=== PATIENT | male | born 1940 | race Hispanic/Latino ===

== ENCOUNTER 2018-08-18 14:36 | Inpatient (IN) | payer MEDICARE ==
--- NOTE | 2018-08-18 15:02 | Cat Scan Report ---
PROCEDURE: CT HEAD/BRAIN WO CON TECHNIQUE: A noncontrast CT of the head was performed. HISTORY: neuro deficits <6hrs or sx present upon awakening COMPARISON: None FINDINGS: There is moderate cerebral atrophy. 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 There is no acute intracranial hemorrhage. There is no brain edema, mass effect or midline shift. Ventricular size is appropriate for brain volume. There is no abnormal extra-axial fluid collections. There is no skull fracture seen. There is some dependent fluid in the left maxillary sinus. Remaining visualized sinuses are clear. IMPRESSION: There is no acute intracranial abnormality seen. Some dependent fluid left maxillary sinus. Acute sinusitis not excluded. This document is electronically signed by Sulema Johnson MD., August 18 2018 03:00:47 PM ET
[2018-08-18 15:13] LABS: Basophils % (Auto) 0.6 % (0.0-1.8); Eosinophils # (Auto) 0.2 K/mm3 (0.0-0.4); Eosinophils % (Auto) 2.9 % (0.0-4.3); Hematocrit 45.4 % (35.5-45.6); Hemoglobin 15.3 gm/dl (11.8-15.2); Lymphocytes # (Auto) 1.3 K/mm3 (1.2-5.4); Lymphocytes % (Auto) 15.8 % (13.4-35.0); Mean Corpuscular HGB Conc 34 % (32-34); Mean Corpuscular Volume 88 fl (84-94); Monocytes # (Auto) 0.5 K/mm3 (0.0-0.8); Platelet Count 271 K/mm3 (140-440); Red Blood Count 5.16 M/mm3 (3.65-5.03); Red Cell Distribution Width 14.3 % (13.2-15.2)
[2018-08-18 15:26] LABS: INR 0.97 (0.87-1.13); Partial Thromboplastin Time 25.4 Sec. (24.2-36.6)
[2018-08-18 15:27] LABS: BUN/Creatinine Ratio 23; Blood Urea Nitrogen 18 mg/dL (9-20); Hemolysis Index 10
--- NOTE | 2018-08-18 15:28 | Emergency Department Report ---
ED Neuro Deficit HPI - General Chief Complaint: Neuro Symptoms/Deficit Stated Complaint: POSS STROKE/SENT BY DOCTOR Time Seen by Provider: 08/18/18 15:03 Source: patient, family Mode of arrival: Stretcher Limitations: No Limitations - History of Present Illness Initial Comments: [facility] Date of service: 08/18/18 Impression: acute onset right hemiparesis without aphasia or other cortical signs - concerning for L subcortical infarct, but LVO with good collaterals is also a concern. Recommend CTA head/neck - - - Not a tpa candidate due to: LKN >4.5 hours Presentation is not suggestive of Large Vessel Occlusive Disease. Thrombectomy would not be recommended. Differential Diagnosis: 1. Cardioembolic stroke 2. Small vessel disease/lacune 3. Thromboembolic, [id number] mechanism 4. Hypercoagulable state-related infarct 5. Transient ischemic attack 6. Thrombotic mechanism, large artery disease Comments: Door time: 1436 [employer] contacted: [phone] [employer] at bedside: 1513 NIHSS assessment time: 1521 Recommendations: ASA CTA head/neck DVT proph - lovenox permissive htn PT/OT/speech bedside swallow eval Inpatient neurology consultation Inpatient stroke evaluation as per Neurology/ Internal Medicine Discussed with ED MD Please call with questions CC right sided weakness. History of Present Illness Patient is a77 yo man with acute onset weakness starting at approx 1000 today. He describes right>left weakness. Weakness involves only the arm and leg, but not the face. He denies trouble speaking/swallowing. No LOC/convulsion. His notes that his speech is also slurred. He takes no blood thinners. Diagnostic: CT head unremarkable. Exam: RESULT SUMMARY: 5 points NIH Stroke Scale INPUTS: 1A: Level of consciousness > 0 = Alert; keenly responsive 1B: Ask month and age > 0 = Both questions right 1C: 'Blink eyes' & 'squeeze hands' > 0 = Performs both tasks 2: Horizontal extraocular movements > 0 = Normal 3: Visual powell > 0 = No visual loss 4: Facial palsy > 1 = Minor paralysis (flat nasolabial fold, smile asymmetry) 5A: Left arm motor drift > 0 = No drift for 10 seconds 5B: Right arm motor drift > 3 = No effort against gravity 6A: Left leg motor drift > 0 = No drift for 5 seconds 6B: Right leg motor drift > 0 = No drift for 5 seconds 7: Limb Ataxia > 0 = No ataxia 8: Sensation > 1 = Mild-moderate loss: less sharp/more dull 9: Language/aphasia > 0 = Normal; no aphasia 10: Dysarthria > 0 = Normal 11: Extinction/inattention > 0 = No abnormality Medical Decision Making: - Extensive number of diagnosis or management options are considered above. - Extensive amount of complex data reviewed. - High risk of complication and/or morbidity or mortality are associated with differential diagnostic considerations above. - There may be Uncertain outcome and increased probability of prolonged functional impairment or high probability of severe prolonged functional impairment associated with some of these differential diagnosis. Medical Data Reviewed: 1.Data reviewed include clinical labs, radiology, Medical Tests; 2.Tests results discussed w/performing or interpreting physician; 3.Obtaining/reviewing old medical records; 4.Obtaining case history from another source; 5.Independent review of image, tracing or specimen. Patient was informed the Neurology Consult would happen via telehealth (remote video) and consented to receiving care in this manner. - Related Data Allergies/Adverse Reactions: Allergies Allergy/AdvReac Type Severity Reaction Status Date / Time Iodine and Iodide Containing Allergy Unknown Verified 08/18/18 15:17 Produc ED Review of Systems ROS: Stated complaint: POSS STROKE/SENT BY DOCTOR Other details as noted in HPI ED Past Medical Hx - Past Medical History Previous Medical History?: Yes Hx Hypertension: Yes Hx Diabetes: Yes Additional medical history: Hypothyroidism. hyperlipidemia. myasthenia gravis - Social History Smoking Status: Never Smoker Substance Use Type: None ED Neuro Physical Exam - General Limitations: No Limitations Suspected Stroke: Yes - NIHSS Assessment Interval: Baseline 1a. Level of Consciousness: alert/keenly responsive 1b. LOC Questions: answers both correctly 1c. LOC Commands: performs tasks correctly 2. Best Gaze: normal 3. Visual: no visual loss 4. Facial Palsy: minor paralysis 5b. Motor Arm Right: no gravity effort 5a. Motor Arm Left: no drift 6a. Motor Leg Left: no drift 6b. Motor Leg Right: no drift 7. Limb Ataxia: absent 8. Sensory: mild/moderate sensory loss 9. Best Language: no aphasia 10. Dysarthria: normal 11. Extinction/Inattention: no abnormality Total Score: 5 Stroke Severity: Moderate Stroke ED Course Vital Signs 08/18/18 15:10 Temperature 97.8 F Pulse Rate 84 Respiratory 16 Rate Blood Pressure 150/74 O2 Sat by Pulse 96 Oximetry - Lab Data Result diagrams: 08/18/18 15:04 Lab Results 08/18/18 08/18/18 Range/Units 15:04 15:04 WBC 8.3 (4.5-11.0) K/mm3 RBC 5.16 H (3.65-5.03) M/mm3 Hgb 15.3 H (11.8-15.2) gm/dl Hct 45.4 (35.5-45.6) % MCV 88 (84-94) fl MCH 30 (28-32) pg MCHC 34 (32-34) % RDW 14.3 (13.2-15.2) % Plt Count 271 (140-440) K/mm3 Lymph % (Auto) 15.8 (13.4-35.0) % [place] % (Auto) 6.0 (0.0-7.3) % Eos % (Auto) 2.9 (0.0-4.3) % Baso % (Auto) 0.6 (0.0-1.8) % Lymph # 1.3 (1.2-5.4) K/mm3 [place] # 0.5 (0.0-0.8) K/mm3 Eos # 0.2 (0.0-0.4) K/mm3 Baso # 0.0 (0.0-0.1) K/mm3 Seg Neutrophils % 74.7 H (40.0-70.0) % Seg Neutrophils # 6.2 (1.8-7.7) K/mm3 PT 13.5 (12.2-14.9) Sec. INR 0.97 (0.87-1.13) Critical care attestation.: If time is entered above; I have spent that time in minutes in the direct care o f this critically ill patient, excluding procedure time. ED Disposition Clinical Impression: Stroke Disposition: DC-09 OP ADMIT IP TO THIS HOSP Is pt being admited?: Yes Condition: Stable Referrals: PRIMARY CARE, [Primary Care Provider] - 3-5 Days
--- NOTE | 2018-08-18 16:22 | Emergency Department Report ---
ED General Adult HPI - General Chief complaint: Neuro Symptoms/Deficit Stated complaint: POSS STROKE/SENT BY DOCTOR Time Seen by Provider: 08/18/18 15:03 Source: patient, family Mode of arrival: Stretcher Limitations: No Limitations - History of Present Illness Initial comments: Patient presents to the emergency department with a chief complaint of right sided weakness and slurred speech that started at approximately 10 AM this morning. The patient went to his primary care physician's office today and upon arriving at their office he was told to come to the emergency department for evaluation. -: Sudden Severity scale (0 -10): 0 Consistency: constant Improves with: none Worsens with: none Associated Symptoms: denies other symptoms Treatments Prior to Arrival: none - Related Data Home Medications Medication Instructions Recorded Confirmed Last Taken ALBUTEROL Inhaler(NF) [VENTOLIN 2 puff IH QID PRN 08/18/18 08/18/18 Unknown Inhaler(NF)] Aspirin [Aspirin BABY CHEW TAB] 81 mg PO QDAY 08/18/18 08/18/18 08/18/18 Cetirizine HCl [ZyrTEC] 10 mg PO DAILY PRN 08/18/18 08/18/18 Unknown Gabapentin [Neurontin] 600 mg PO Q8H 08/18/18 08/18/18 08/18/18 Ibuprofen [Advil 100 MG tab] 200 mg PO Q6H PRN 08/18/18 08/18/18 Unknown Levothyroxine [Synthroid] 100 mcg PO QAM 08/18/18 08/18/18 08/18/18 Lisinopril [Zestril TAB] 2.5 mg PO QDAY 08/18/18 08/18/18 08/18/18 Montelukast [Singulair] 10 mg PO QPM PRN 08/18/18 08/18/18 Unknown Mycophenolate [Cellcept] 500 mg PO DAILY 08/18/18 08/18/18 08/18/18 Pyridostigmine [Mestinon] 60 mg PO Q6HR 08/18/18 08/18/18 08/18/18 Ranitidine HCl [Zantac] 150 mg PO BID 08/18/18 08/18/18 08/18/18 Rosuvastatin (Nf) [Crestor] 5 mg PO QHS 08/18/18 08/18/18 08/17/18 amLODIPine [Norvasc] 10 mg PO DAILY 08/18/18 08/18/18 08/18/18 metFORMIN [Glucophage] 500 mg PO QDAY 08/18/18 08/18/18 08/18/18 Allergies Allergy/AdvReac Type Severity Reaction Status Date / Time Iodine and Iodide Containing Allergy Anaphylaxis Verified 08/18/18 16:19 Produc latex Allergy Unknown Verified 08/18/18 15:29 soy Allergy Unknown Verified 08/18/18 16:19 ED Review of Systems ROS: Stated complaint: POSS STROKE/SENT BY DOCTOR Other details as noted in HPI Constitutional: denies: chills, fever Eyes: denies: eye pain, eye discharge, vision change ENT: denies: ear pain, throat pain Respiratory: denies: cough, shortness of breath, wheezing Cardiovascular: denies: chest pain, palpitations Endocrine: no symptoms reported Gastrointestinal: denies: abdominal pain, nausea, diarrhea Genitourinary: denies: urgency, dysuria Musculoskeletal: denies: back pain, joint swelling, arthralgia Skin: denies: rash, lesions Neurological: weakness. denies: headache, paresthesias Psychiatric: denies: anxiety, depression Hematological/Lymphatic: denies: easy bleeding, easy bruising ED Past Medical Hx - Past Medical History Previous Medical History?: Yes Hx Hypertension: Yes Hx Diabetes: Yes Additional medical history: Hypothyroidism. hyperlipidemia. myasthenia gravis - Social History Smoking Status: Never Smoker Substance Use Type: None - Medications Home Medications: Home Medications Medication Instructions Recorded Confirmed Last Taken Type ALBUTEROL Inhaler(NF) [VENTOLIN 2 puff IH QID PRN 08/18/18 08/18/18 Unknown History Inhaler(NF)] Aspirin [Aspirin BABY CHEW TAB] 81 mg PO QDAY 08/18/18 08/18/18 08/18/18 History Cetirizine HCl [ZyrTEC] 10 mg PO DAILY PRN 08/18/18 08/18/18 Unknown History Gabapentin [Neurontin] 600 mg PO Q8H 08/18/18 08/18/18 08/18/18 History Ibuprofen [Advil 100 MG tab] 200 mg PO Q6H PRN 08/18/18 08/18/18 Unknown History Levothyroxine [Synthroid] 100 mcg PO QAM 0408/18/18 08/18/18 History Lisinopril [Zestril TAB] 2.5 mg PO QDAY 08/18/18 08/18/18 08/18/18 History Montelukast [Singulair] 10 mg PO QPM PRN 08/18/18 08/18/18 Unknown History Mycophenolate [Cellcept] 500 mg PO DAILY 08/18/18 08/18/18 08/18/18 History Pyridostigmine [Mestinon] 60 mg PO Q6HR 08/18/18 08/18/18 08/18/18 History Ranitidine HCl [Zantac] 150 mg PO BID 08/18/18 08/18/18 08/18/18 History Rosuvastatin (Nf) [Crestor] 5 mg PO QHS 08/18/18 08/18/18 08/17/18 History amLODIPine [Norvasc] 10 mg PO DAILY 08/18/18 08/18/18 08/18/18 History metFORMIN [Glucophage] 500 mg PO QDAY 08/18/18 08/18/18 08/18/18 History ED Physical Exam - General Limitations: No Limitations General appearance: alert, in no apparent distress - Head Head exam: Present: atraumatic, normocephalic - Eye Eye exam: Present: normal appearance, PERRL, EOMI - ENT ENT exam: Present: mucous membranes moist - Neck Neck exam: Present: normal inspection - Respiratory Respiratory exam: Present: normal lung sounds bilaterally. Absent: respiratory distress - Cardiovascular Cardiovascular Exam: Present: regular rate, normal rhythm. Absent: systolic murmur, diastolic murmur, rubs, gallop - GI/Abdominal GI/Abdominal exam: Present: soft, normal bowel sounds. Absent: distended, tenderness - Rectal Rectal exam: Present: deferred - Extremities Exam Extremities exam: Present: normal inspection - Back Exam Back exam: Present: normal inspection - Neurological Exam Neurological exam: Present: alert, oriented X3, CN II-XII intact, other (4/5 strength RUE and RLE) - Psychiatric Psychiatric exam: Present: normal affect, normal mood - Skin Skin exam: Present: warm, dry, intact, normal color. Absent: rash ED Course Vital Signs 08/18/18 15:10 Temperature 97.8 F Pulse Rate 84 Respiratory 16 Rate Blood Pressure 150/74 O2 Sat by Pulse 96 Oximetry ED Medical Decision Making - Lab Data Result diagrams: 08/18/18 15:04 08/18/18 15:04 Lab Results 08/18/18 08/18/18 08/18/18 Range/Units 15:04 15:04 15:04 WBC 8.3 (4.5-11.0) K/mm3 RBC 5.16 H (3.65-5.03) M/mm3 Hgb 15.3 H (11.8-15.2) gm/dl Hct 45.4 (35.5-45.6) % MCV 88 (84-94) fl MCH 30 (28-32) pg MCHC 34 (32-34) % RDW 14.3 (13.2-15.2) % Plt Count 271 (140-440) K/mm3 Lymph % (Auto) 15.8 (13.4-35.0) % [place] % (Auto) 6.0 (0.0-7.3) % Eos % (Auto) 2.9 (0.0-4.3) % Baso % (Auto) 0.6 (0.0-1.8) % Lymph # 1.3 (1.2-5.4) K/mm3 [place] # 0.5 (0.0-0.8) K/mm3 Eos # 0.2 (0.0-0.4) K/mm3 Baso # 0.0 (0.0-0.1) K/mm3 Seg Neutrophils % 74.7 H (40.0-70.0) % Seg Neutrophils # 6.2 (1.8-7.7) K/mm3 PT 13.5 (12.2-14.9) Sec. INR 0.97 (0.87-1.13) APTT 25.4 (24.2-36.6) Sec. Thrombin Time (15.1-19.6) Sec. Sodium 138 (137-145) mmol/L Potassium 4.2 (3.6-5.0) mmol/L Chloride 102.2 (98-107) mmol/L Carbon Dioxide 25 (22-30) mmol/L Anion Gap 15 mmol/L BUN 18 (9-20) mg/dL Creatinine 0.8 (0.8-1.5) mg/dL Estimated GFR > 60 ml/min BUN/Creatinine Ratio 23 % Glucose 144 H (75-100) mg/dL POC Glucose (70-105) Calcium 9.0 (8.4-10.2) mg/dL Troponin T < 0.010 (0.00-0.029) ng/mL 08/18/18 08/18/18 Range/Units 15:04 15:12 WBC (4.5-11.0) K/mm3 RBC (3.65-5.03) M/mm3 Hgb (11.8-15.2) gm/dl Hct (35.5-45.6) % MCV (84-94) fl MCH (28-32) pg MCHC (32-34) % RDW (13.2-15.2) % Plt Count (140-440) K/mm3 Lymph % (Auto) (13.4-35.0) % [place] % (Auto) (0.0-7.3) % Eos % (Auto) (0.0-4.3) % Baso % (Auto) (0.0-1.8) % Lymph # (1.2-5.4) K/mm3 [place] # (0.0-0.8) K/mm3 Eos # (0.0-0.4) K/mm3 Baso # (0.0-0.1) K/mm3 Seg Neutrophils % (40.0-70.0) % Seg Neutrophils # (1.8-7.7) K/mm3 PT (12.2-14.9) Sec. INR (0.87-1.13) APTT (24.2-36.6) Sec. Thrombin Time 16.2 (15.1-19.6) Sec. Sodium (137-145) mmol/L Potassium (3.6-5.0) mmol/L Chloride (98-107) mmol/L Carbon Dioxide (22-30) mmol/L Anion Gap mmol/L BUN (9-20) mg/dL Creatinine (0.8-1.5) mg/dL Estimated GFR ml/min BUN/Creatinine Ratio % Glucose (75-100) mg/dL POC Glucose 116 H (70-105) Calcium (8.4-10.2) mg/dL Troponin T (0.00-0.029) ng/mL - EKG Data -: EKG Interpreted by Mt EKG shows normal: sinus rhythm Rate: normal - Radiology Data Radiology results: report reviewed - Medical Decision Making Telemetry neuro consult done The patient has allergy to IV contrast thus requested CT angiogram of the neck and head were not done Results discussed with patient and his Critical care attestation.: If time is entered above; I have spent that time in minutes in the direct care of this critically ill patient, excluding procedure time. ED Disposition Clinical Impression: Stroke Disposition: DC-09 OP ADMIT IP TO THIS HOSP Is pt being admited?: Yes Does the pt Need Aspirin: No Condition: Fair Referrals: PRIMARY CARE, [Primary Care Provider] - 3-5 Days - Assessment Assessment Interval: Baseline - Level of Consciousness 1a. Level of Consciousness: alert/keenly responsive - LOC Questions 1b. LOC Questions: answers both correctly - LOC Command 1c. LOC Commands: performs tasks correctly - Best Gaze 2. Best Gaze: normal - Visual 3. Visual: no visual loss - Facial Palsy 4. Facial Palsy: minor paralysis - Motor Arm 5a. Motor Arm Left: no drift - Motor Leg 6a. Motor Leg Left: no gravity effort 6b. Motor Leg Right: no drift - Limb Ataxia 7. Limb Ataxia: absent - Sensory 8. Sensory: mild/moderate sensory loss - Best Language 9. Best Language: no aphasia - Dysarthria 10. Dysarthria: normal - Extinction and Inattention 11. Extinction/Inattention: no abnormality
[2018-08-18 17:41] LABS: Bilirubin,Urine NEG (Negative); Blood,Urine NEG (Negative); Color,Urine Yellow (Yellow); Mucus,Urine FEW /HPF; Protein,Urine <15 mg/dL mg/dL (Negative); WBC,Urine < 1.0 /HPF (0.0-6.0)
[2018-08-18] MEDS ORDERED: MILK OF MAGNESIA PO PRN (20:03)
[2018-08-18] MEDS ORDERED: SODIUM CHLORIDE FLUSH SYRINGE 10 ML IV PRN (20:03)
[2018-08-18] MEDS ORDERED: REGLAN PO PRN (20:03)
[2018-08-18] MEDS ORDERED: TYLENOL PO PRN (20:03)
[2018-08-18] MEDS ORDERED: PHENERGAN PR PRN (20:03)
[2018-08-18] MEDS ORDERED: DULCOLAX PR PRN (20:03)
[2018-08-18] MEDS ORDERED: ZOFRAN IV PRN (20:03)
--- NOTE | 2018-08-18 20:12 | History and Physical Report ---
History of Present Illness Date of examination: 08/18/18 Date of admission: 08/18/18 17:40 Chief complaint: Right-sided weakness History of present illness: Patient is a 77-year-old male with PMHx of hypertension, hypothyroidism, DM type II, myasthenia gravis, who was brought to the to the ER by EMS with complaints of right-sided weakness 1 day. According to the patient the symptoms started around 10 AM when he first woke up, he reports difficulty moving out of, and his right Leg and arm, diminished sensation, slurred speech and some facial drooping. Patient states that the symptoms was gradually improving, he went to his primary care doctor today who sent him directly to the ER for evaluation. Patient was alert and oriented 3 on arrival to the ER, he was to provide medical history denies any headache, denies double vision, denies dizziness, he denies LOC, denies syncope, denies cough denies shortness of breath. Patient was evaluated in the ER by neurologist, he had a CT scan of the brain which was normal. Patient is admitted for further evaluation, stroke protocol was initiated. Past History Past Medical History: CAD, COPD, hypertension, other (myasthenia gravis) Past Surgical History: hernia repair Social history: no significant social history Family history: no significant family history Medications and Allergies Allergies Allergy/AdvReac Type Severity Reaction Status Date / Time Iodine and Iodide Containing Allergy Anaphylaxis Verified 08/18/18 16:19 Produc latex Allergy Unknown Verified 08/18/18 15:29 soy Allergy Unknown Verified 08/18/18 16:19 Home Medications Medication Instructions Recorded Confirmed Last Taken Type ALBUTEROL Inhaler(NF) [VENTOLIN 2 puff IH QID PRN 08/18/18 08/18/18 Unknown History Inhaler(NF)] Aspirin [Aspirin BABY CHEW TAB] 81 mg PO QDAY 08/18/18 08/18/18 08/18/18 History Cetirizine HCl [ZyrTEC] 10 mg PO DAILY PRN 08/18/18 08/18/18 Unknown History Gabapentin [Neurontin] 600 mg PO Q8H 08/18/18 08/18/18 08/18/18 History Ibuprofen [Advil 100 MG tab] 200 mg PO Q6H PRN 08/18/18 08/18/18 Unknown History Levothyroxine [Synthroid] 100 mcg PO QAM 08/18/18 08/18/18 08/18/18 History Lisinopril [Zestril TAB] 2.5 mg PO QDAY 08/18/18 08/18/18 08/18/18 History Montelukast [Singulair] 10 mg PO QPM PRN 08/18/18 08/18/18 Unknown History Mycophenolate [Cellcept] 500 mg PO DAILY 08/18/18 08/18/18 08/18/18 History Pyridostigmine [Mestinon] 60 mg PO Q6HR 08/18/18 08/18/18 08/18/18 History Ranitidine HCl [Zantac] 150 mg PO BID 08/18/18 08/18/18 08/18/18 History Rosuvastatin (Nf) [Crestor] 5 mg PO QHS 08/18/18 08/18/18 08/17/18 History amLODIPine [Norvasc] 10 mg PO DAILY 08/18/18 08/18/18 08/18/18 History metFORMIN [Glucophage] 500 mg PO QDAY 08/18/18 08/18/18 08/18/18 History Active Meds: Active Medications Acetaminophen (Tylenol) 650 mg PO Q4H PRN PRN Reason: Pain, Mild (1-3) Bisacodyl (Dulcolax) 10 mg TX QDAY PRN PRN Reason: Constipation Magnesium Hydroxide (Milk Of Magnesia) 30 ml PO Q4H PRN PRN Reason: Constipation Metoclopramide HCl (Reglan) 10 mg PO Q6H PRN PRN Reason: Nausea And Vomiting Ondansetron HCl (Zofran) 4 mg IV Q8H PRN PRN Reason: Nausea And Vomiting Promethazine HCl (Phenergan) 25 mg TX Q6H PRN PRN Reason: Nausea And Vomiting Sodium Chloride (Sodium Chloride Flush Syringe 10 Ml) 10 ml INJ PRN PRN PRN Reason: LINE FLUSH Review of Systems Neurological: balance difficulties, gait dysfunction, motor disturbance, sensory deficit, paralysis Exam - Constitutional Vitals: Temp Pulse Resp BP Pulse Ox 97.8 F 84 16 150/74 96 08/18/18 15:10 08/18/18 15:10 08/18/18 15:10 08/18/18 15:10 08/18/18 15:10 General appearance: Present: no acute distress - EENT Eyes: Present: PERRL, EOM intact ENT: hearing intact - Neck Neck: Present: supple, normal ROM - Respiratory Respiratory effort: normal Respiratory: right: CTA - Cardiovascular Rhythm: regular - Extremities Extremities: no ischemia Peripheral Pulses: within normal limits - Abdominal General gastrointestinal: Present: deferred, non-tender, non-distended Male genitourinary: Present: deferred - Rectal Rectal Exam: deferred - Integumentary Integumentary: Present: warm, dry, rash - Musculoskeletal Musculoskeletal: right sided weakness - Psychiatric Psychiatric: cooperative - Neurologic Neurologic: focal deficits Results - Labs CBC & Chem 7: 08/18/18 15:04 08/18/18 15:04 Labs: Laboratory Last Values WBC 8.3 K/mm3 (4.5-11.0) 08/18/18 15:04 RBC 5.16 M/mm3 (3.65-5.03) H 08/18/18 15:04 Hgb 15.3 gm/dl (11.8-15.2) H 08/18/18 15:04 Hct 45.4 % (35.5-45.6) 08/18/18 15:04 MCV 88 fl (84-94) 08/18/18 15:04 MCH 30 pg (28-32) 08/18/18 15:04 MCHC 34 % (32-34) 08/18/18 15:04 RDW 14.3 % (13.2-15.2) 08/18/18 15:04 Plt Count 271 K/mm3 (140-440) 08/18/18 15:04 Lymph % (Auto) 15.8 % (13.4-35.0) 08/18/18 15:04 [place] % (Auto) 6.0 % (0.0-7.3) 08/18/18 15:04 Eos % (Auto) 2.9 % (0.0-4.3) 08/18/18 15:04 Baso % (Auto) 0.6 % (0.0-1.8) 08/18/18 15:04 Lymph # 1.3 K/mm3 (1.2-5.4) 08/18/18 15:04 [place] # 0.5 K/mm3 (0.0-0.8) 08/18/18 15:04 Eos # 0.2 K/mm3 (0.0-0.4) 08/18/18 15:04 Baso # 0.0 K/mm3 (0.0-0.1) 08/18/18 15:04 Seg Neutrophils % 74.7 % (40.0-70.0) H 08/18/18 15:04 Seg Neutrophils # 6.2 K/mm3 (1.8-7.7) 08/18/18 15:04 PT 13.5 Sec. (12.2-14.9) 08/18/18 15:04 INR 0.97 (0.87-1.13) 08/18/18 15:04 APTT 25.4 Sec. (24.2-36.6) 08/18/18 15:04 Thrombin Time 16.2 Sec. (15.1-19.6) 08/18/18 15:04 Sodium 138 mmol/L (137-145) 08/18/18 15:04 Potassium 4.2 mmol/L (3.6-5.0) 08/18/18 15:04 Chloride 102.2 mmol/L (98-107) 08/18/18 15:04 Carbon Dioxide 25 mmol/L (22-30) 08/18/18 15:04 Anion Gap 15 mmol/L 08/18/18 15:04 BUN 18 mg/dL (9-20) 08/18/18 15:04 Creatinine 0.8 mg/dL (0.8-1.5) 08/18/18 15:04 Estimated GFR > 60 ml/min 08/18/18 15:04 BUN/Creatinine Ratio 23 % 08/18/18 15:04 Glucose 144 mg/dL (75-100) H 08/18/18 15:04 POC Glucose 116 (70-105) H 08/18/18 15:12 Calcium 9.0 mg/dL (8.4-10.2) 08/18/18 15:04 Troponin T < 0.010 ng/mL (0.00-0.029) 08/18/18 15:04 Urine Color Yellow (Yellow) 08/18/18 17:25 Urine Turbidity Clear (Clear) 08/18/18 17:25 Urine pH 5.0 (5.0-7.0) 08/18/18 17:25 Ur Specific [place] 1.012 (1.003-1.030) 08/18/18 17:25 Urine Protein <15 mg/dl mg/dL (Negative) 08/18/18 17:25 Urine Glucose (UA) Neg mg/dL (Negative) 08/18/18 17:25 Urine Ketones Neg mg/dL (Negative) 08/18/18 17:25 Urine Blood Neg (Negative) 08/18/18 17:25 Urine Nitrite Neg (Negative) 08/18/18 17:25 Urine Bilirubin Neg (Negative) 08/18/18 17:25 Urine Urobilinogen 2.0 mg/dL (<2.0) 08/18/18 17:25 Ur Leukocyte Esterase Neg (Negative) 08/18/18 17:25 Urine WBC (Auto) < 1.0 /HPF (0.0-6.0) 08/18/18 17:25 Urine RBC (Auto) 2.0 /HPF (0.0-6.0) 08/18/18 17:25 U Epithel Cells (Auto) 1.0 /HPF (0-13.0) 08/18/18 17:25 Urine Mucus Few /HPF 08/18/18 17:25 Assessment and Plan Assessment and plan: 77-year-old male who presents with right-sided weakness and acute CVA-like symptoms 1. Acute CVA 2. Right-sided weakness due to CVA 3. History of hypertension 4. Hyperlipidemia 5. DM type II 6. History of hypothyroidism 7. History of myasthenia gravis Plan: Patient is admitted for CVA-like symptoms Tele neurology was consulted Acute ischemic stroke protocol was initiated Bedside swallow study Neuro Check every 2 hours Review home meds Accu-Chek ACHS with insulin per sliding scale Pending MRI of the brain PT/OT to evaluate and treat in the a.m. Case management for discipline Care discussed with patient and family, voiced understanding Patient's condition and plan of care D/W with Dr. Muse Advance Directives: Yes VTE prophylaxis?: Chemical Plan of care discussed with patient/family: Yes
[2018-08-19] MEDS ORDERED: PROAIR IH PRN (01:24)
[2018-08-19] MEDS ORDERED: NON-FORMULARY (Cetirizine Hcl [Zyrtec] 10 MG) PO PRN (01:24)
[2018-08-19] MEDS ORDERED: SINGULAIR PO PRN (01:24)
[2018-08-19] MEDS ORDERED: NON-FORMULARY (Gabapentin [Neurontin] 600 MG) PO SCH (01:30)
[2018-08-19] MEDS ORDERED: CLARITIN PO PRN (01:54)
[2018-08-19] MEDS ORDERED: PROVENTIL IH PRN (01:59)
[2018-08-19] MEDS: NEURONTIN PO SCH ×3 (05:43→22:16)
[2018-08-19] MEDS: MESTINON PO SCH ×5 (05:43→23:43)
[2018-08-19] MEDS: SYNTHROID PO SCH (05:43)
[2018-08-19 07:40] LABS: Chol/HDL Ratio 4.65 %
--- NOTE | 2018-08-19 09:59 | Magnetic Resonance Report ---
MRI BRAIN WITHOUT CONTRAST: 08/19/18 CLINICAL: CVA. Right-sided weakness. TECHNIQUE: Axial diffusion, T1, T2, gradient echo T2*, coronal and axial FLAIR and sagittal T1 sequences on a 1.5 Naty magnet. FINDINGS: The vessels and sulci are large for age and the ventricles are disproportionately large compared to the sulci. Focal restricted diffusion in the left funk radiata measuring 9 mm maximum. No other restricted diffusion. A chronic right funk radiata lacunar infarct. No other infarct and no hemorrhage. Moderate bilateral multifocal deep white matter and subcortical white matter hyperintensities on FLAIR and T2. No mass or mass effect. No edema or extra-axial collection. No chronic microbleeds on the gradient echo sequence. Normal pituitary and optic chiasm. The brainstem and cerebellum are normal. Intact vascular flow voids. Mild bilateral ethmoid and maxillary sinusitis. The orbits, and soft tissues are normal. Normal calvarium and skull base. IMPRESSION: 1. A nonhemorrhagic acute/subacute lacunar infarct of the left funk radiata. 2. A chronic right funk radiata lacunar infarct. 3. Global cortical atrophy with disproportionate ventricular enlargement. 4. Moderate chronic white matter microangiopathy
[2018-08-19] MEDS ORDERED: NON-FORMULARY (Lisinopril [Zestril Tab] 2.5 MG) PO SCH (10:00)
[2018-08-19] MEDS ORDERED: NON-FORMULARY (Ranitidine Hcl [Zantac] 150 MG) PO SCH (10:00)
--- NOTE | 2018-08-19 10:03 | Magnetic Resonance Report ---
MRA HEAD WITHOUT CONTRAST: 08/19/18 CLINICAL: CVA and right-sided weakness. TECHNIQUE: Axial 3-D [id number] MR angiography of the [place] with review of axial source images. FINDINGS: Intact [place] with no aneurysm or high-grade stenosis. Symmetric blood flow in the anterior, middle and posterior cerebral arteries. Normal basilar and left vertebral arteries. The right vertebral artery is not identified. 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
[2018-08-19] MEDS: NORVASC PO SCH (11:06)
[2018-08-19] MEDS: BABY ASPIRIN PO SCH (11:06)
[2018-08-19] MEDS: PEPCID PO SCH ×2 (11:07→22:17)
[2018-08-19] MEDS: ZESTRIL PO SCH (11:07)
[2018-08-19] MEDS: CELLCEPT PO SCH (11:07)
--- NOTE | 2018-08-19 14:17 | Vascular Lab Report ---
PROCEDURE: VL CAROTID DUPLEX BILAT TECHNIQUE: Carotid duplex Doppler ultrasound. Grayscale, color flow and spectral waveform imaging pe rformed. HISTORY: cva COMPARISON: None FINDINGS: There is mild to moderate plaque bilaterally. There is no abnormal elevation in flow velocity seen. ICA/CCA velocity ratios are normal bilaterally. Findings correspond to ICA stenoses of less than 50%. Vertebral artery flow is antegrade bilaterally . There is mild elevation of velocity involving the right ECA (153 cm/s) which could reflect mild ECA s tenosis, 50-69%. There is also mildly elevated flow velocity in right proximal subclavian artery measured at 197 cm/s which is also concerning for mild subclavian stenosis. IMPRESSION: No evidence of ICA stenosis of hemodynamic significance (less than 50%). Mildly elevated velocities in proximal right ECA and proximal right subclavian. This could reflect mi ld ECA and subclavian stenoses of mild hemodynamic significance. This document is electronically signed by Sulema Johnson MD., August 19 2018 02:15:44 PM ET
[2018-08-19] MEDS ORDERED: SODIUM CHLORIDE FLUSH SYRINGE 10 ML IV PRN (14:57)
--- NOTE | 2018-08-19 15:16 | Progress Note ---
Assessment and Plan 1. Acute CVA 2. Right-sided weakness due to CVA 3. History of hypertension 4. Hyperlipidemia 5. DM type II 6. History of hypothyroidism 7. History of myasthenia gravis Plan: Patient is admitted for CVA Good improvement MRI/MRA reslts pending Tele neurology was consulted Acute ischemic stroke protocol was initiated Bedside swallow study--Able to swallow Neuro Check every 2 hours Review home meds Accu-Chek ACHS with insulin per sliding scale Pending MRI of the brain PT/OT to evaluate and treat in the a.m. Case management for discipline Care discussed with patient and family, voiced understanding Advance Directives: Yes VTE prophylaxis?: Chemical Plan of care discussed with patient/family: Yes Subjective Date of service: 08/19/18 Principal diagnosis: Acute CVA-Lt side Interval history: Good improvement in power in RUE and RLE ---near normal.5/5 power both RUE and RLE Able to ambulate normally Objective - Constitutional Vitals: Vital Signs - 12hr 08/19/18 08/19/18 08/19/18 04:22 07:36 11:06 Temperature 97.5 F L 97.5 F L Pulse Rate 75 75 Respiratory 18 18 Rate Blood Pressure 140/56 151/67 142/57 O2 Sat by Pulse 96 Oximetry 08/19/18 08/19/18 11:07 12:58 Temperature 98.3 F Pulse Rate 75 Respiratory 18 Rate Blood Pressure 151/67 107/61 O2 Sat by Pulse Oximetry General appearance: Present: no acute distress, well-nourished - EENT Eyes: PERRL, EOM intact ENT: hearing intact, clear oral mucosa Ears: bilateral: normal - Neck Neck: supple, normal ROM - Respiratory Respiratory effort: normal Respiratory: bilateral: CTA - Breasts Breasts: normal - Cardiovascular Heart rate: 78 Rhythm: regular Heart Sounds: Present: S1 & S2. Absent: gallop, rub Extremities: no ischemia, pulses intact, No edema, normal color, Full ROM - Gastrointestinal General gastrointestinal: Present: soft, non-tender, non-distended, normal bowel sounds - Genitourinary Male genitourinary: normal - Integumentary Integumentary: clear, warm, dry - Musculoskeletal Musculoskeletal: 1, strength equal bilaterally - Neurologic Neurologic: moves all extremities - Psychiatric Psychiatric: memory intact, appropriate mood/affect, intact judgment & insight - Allied health notes Allied health notes reviewed: nursing, case management - Labs CBC & Chem 7: 08/18/18 15:04 08/18/18 15:04 Labs: Abnormal lab results 08/18/18 08/18/18 08/18/18 Range/Units 15:04 15:12 21:28 Glucose 144 H (75-100) mg/dL POC Glucose 116 H 121 H (70-105) Triglycerides (2-149) mg/dL HDL Cholesterol (40-59) mg/dL 08/19/18 08/19/18 08/19/18 Range/Units 06:28 07:08 12:59 Glucose (75-100) mg/dL POC Glucose 117 H 140 H (70-105) Triglycerides 182 H (2-149) mg/dL HDL Cholesterol 38 L (40-59) mg/dL
[2018-08-19] MEDS: HumaLOG SUB-Q SCH (22:18)
[2018-08-20] MEDS: NEURONTIN PO SCH (05:16)
[2018-08-20] MEDS: MESTINON PO SCH (05:16)
[2018-08-20] MEDS: SYNTHROID PO SCH (05:16)
[2018-08-20] MEDS: HumaLOG SUB-Q SCH ×2 (08:30)
--- NOTE | 2018-08-20 09:06 | Discharge Summary ---
Providers - Providers Date of Admission: 08/18/18 17:40 Date of discharge: 08/20/18 Attending physician: MARIAH SOTELO 08/18/18 20:03 Consult to Case Management [CONS] Routine Services Needed at Discharge: Physical Therapy Occupational Therapy Notified:: case management Consult to Dietitian/Nutrition [CONS] Routine Physician Instructions: Reason For Exam: Reason for Consult: Nutrition Recommendations Reason for Consult: Diet education Occupational Therapy Evaluate and Treat [CONS] Routine Comment: Reason For Exam: Neuro deficits Physical Therapy Evaluation and Treat [CONS] Routine Comment: Reason For Exam: Neuro deficits 08/19/18 02:45 Physical Therapy Evaluation and Treat [CONS] Routine Comment: Reason For Exam: stroke Mode of Transport?: Walker Weight bearing status?: Full wt bearing Assistive devices?: No 08/19/18 06:27 Consult to Case Management [CONS] Routine Services Needed at Discharge: Physical Therapy Notified:: case management Comment:: DC plan 08/19/18 14:57 Occupational Therapy Evaluate and Treat [CONS] Routine Comment: Reason For Exam: Neuro deficits Physical Therapy Evaluation and Treat [CONS] Routine Comment: Reason For Exam: Neuro deficits Primary care physician: WELDER OXYHYDROGEN Hospitalization Condition: Fair Pertinent studies: MRI of the brain shows nonhemorrhagic acute/subacute lacunar infarct of the left funk radiata. A chronic right funk radiata lacunar infarct. Global cortical atrophy with disproportionate ventricular enlargement. Moderate chronic white matter microangiopathy. MRA of brain shows right vertebral artery occlusion and otherwise normal study Echo normal ejection fraction of 55-60% no left ventricular hypertrophy. Echo report on the chart Carotid duplex scan--no evidence of critical occlusion Mildly elevated velocities Hospital course: 1. Acute CVA---Improved back to normal 2. Right-sided weakness due to CVA--Improved 3. Hypertension--Well controlled 4. Hyperlipidemia 5. DM type II 6. History of hypothyroidism 7. History of myasthenia gravis Plan: Patient is admitted for CVA Good improvement Tele neurology was consulted Acute ischemic stroke protocol was initiated Bedside swallow study--Able to swallow Neuro Check every 2 hours Review home meds Accu-Chek ACHS with insulin per sliding scale MRI of the brain--N nonhemorrhagic acute/subacute lacunar infarct of the left funk radiata. A chronic right coronaradiata lacunar infarct. Global cortical atrophy with disproportionate ventricular enlargement. Moderate chronic white matter microangiopathy PT at home Case management for home health services Care discussed with patient and family, voiced understanding Advance Directives: Yes VTE prophylaxis?: Chemical Plan of care discussed with patient/family: Yes Disposition: DC-01 TO HOME OR SELFCARE Core Measure Documentation - Palliative Care Palliative Care/ Comfort Measures: Not Applicable - Core Measures Any of the following diagnoses?: stroke, none - Stroke Discharge Requirements Statin for LDL = or >70 mg/dl on DC: Yes Anticoag for atrial fib/atrial flutter: Yes Antithrombotic for ischemic stroke: Yes Exam - Constitutional Vitals: Temp Pulse Resp BP Pulse Ox 97.7 F 74 18 118/59 93 08/20/18 07:49 08/20/18 04:21 08/20/18 07:49 08/20/18 07:49 08/20/18 04:21 General appearance: Present: no acute distress, well-nourished - EENT Eyes: Present: PERRL ENT: hearing intact, clear oral mucosa - Neck Neck: Present: supple, normal ROM - Respiratory Respiratory effort: normal Respiratory: bilateral: CTA - Cardiovascular Heart rate: 78 Rhythm: regular Heart Sounds: Present: S1 & S2. Absent: rub, click - Extremities Extremities: pulses symmetrical, No edema Peripheral Pulses: within normal limits - Abdominal General gastrointestinal: Present: soft, non-tender, non-distended, normal bowel sounds Male genitourinary: Present: normal - Integumentary Integumentary: Present: clear, warm, dry - Musculoskeletal Musculoskeletal: gait normal, strength equal bilaterally - Psychiatric Psychiatric: appropriate mood/affect, intact judgment & insight - Neurologic Neurologic: CNII-XII intact, focal deficits (right focal deficit improved back to normal. Initial strength was 3.5, now it is 5 over 5), moves all extremities Plan Activity: no restrictions Diet: low cholesterol, low salt Special Instructions: other (Home PT) Follow up with: PRIMARY MD DUNCAN [Primary Care Provider] - 3-5 Days MARTHA VÁZQUEZ MD [Referring] - 7 Days LORETTA RAZA MD [Staff Physician] - 7 Days
[2018-08-20] MEDS: PEPCID PO SCH (09:40)
[2018-08-20] MEDS: NORVASC PO SCH (09:40)
[2018-08-20] MEDS: BABY ASPIRIN PO SCH (09:40)
[2018-08-20] MEDS: CELLCEPT PO SCH (09:40)
[2018-08-20 09:41] VITALS: BP 124/59
[2018-08-20] MEDS: ZESTRIL PO SCH (09:41)
== END 2018-08-20 11:20 | disposition home health service (06) | DRG 65 ==
LOC: ED 14:36 → 4A 17:40
PROVIDERS: ADMIT Internal Medicine; ATTEND Internal Medicine
DX: I63.9 Cerebral infarction, unspecified (principal); G81.91 Hemiplegia, unspecified affecting right dominant side; E03.9 Hypothyroidism, unspecified; E78.5 Hyperlipidemia, unspecified; G70.00 Myasthenia gravis without (acute) exacerbation; I10 Essential (primary) hypertension; E11.9 Type 2 diabetes mellitus without complications; J44.9 Chronic obstructive pulmonary disease, unspecified; Z79.84 Long term (current) use of oral hypoglycemic drugs; Z79.82 Long term (current) use of aspirin
CPT/HCPCS: 36415; 70450; 70544; 70551; 80048; 80061; 81001; 82962; 84484; 85025; 85610; 85670; 85730; 93005; 93010; 93306; 93880; G0378; A9270-GY; J1815; J7517